=== PATIENT | male | born 1990 | race Two or more races ===

== ENCOUNTER 2018-03-09 11:10 | Emergency (ER) | payer OTHER ==
[~2018-03-09] VITALS: Ht 180.3 cm; Wt 104.3 kg
== END 2018-03-09 15:58 | disposition home or self-care (01) ==
LOC: ER 11:10 → EDBD 12:10 → ER 12:10
DX: A53.9 Syphilis, unspecified (principal); Z86.19 Personal history of other infectious and parasitic diseases

== ENCOUNTER 2019-07-20 09:02 | Emergency (ER) | payer OTHER ==
[~2019-07-20] VITALS: Ht 193 cm; Wt 122.5 kg
== END 2019-07-20 11:39 | disposition home or self-care (01) ==
LOC: ER 09:02
DX: N48.1 Balanitis (principal)

== ENCOUNTER 2020-05-09 03:06 | Emergency (ER) | payer OTHER ==
[~2020-05-09] VITALS: Ht 180.3 cm; Wt 104.3 kg
== END 2020-05-09 05:23 | disposition home or self-care (01) ==
LOC: ER 03:06
DX: Z20.2 Contact with and (suspected) exposure to infections with a predominantly sexual mode of transmission (principal)

== ENCOUNTER 2023-01-29 01:01 | Emergency (ER) | payer OTHER ==
[~2023-01-29] VITALS: Ht 180.3 cm; Wt 108.9 kg
[2023-01-29] MEDS ORDERED: TRUVADA 100 MG1 EACH PO (01:42)
[2023-01-29] MEDS ORDERED: ZITHROMAX500 MG PO (04:19)
== END 2023-01-29 07:30 | disposition home or self-care (01) ==
LOC: ER 01:01
DX: A74.9 Chlamydial infection, unspecified (principal); R30.0 Dysuria